=== PATIENT | male | born 1945 | race Caucasian/White ===

== ENCOUNTER 2019-10-03 15:49 | Inpatient (IN) | payer MEDICARE ==
--- NOTE | 2019-10-03 16:54 | RAD ---
EXAM: CHEST ONE VIEW: 10/03/19 HISTORY: Preoperative evaluation. COMPARISON: 07/17/17. FINDINGS: Cardiomegaly. Less than optimal inspiratory effort. No confluent pneumonia, overt edema, or pleural e ffusion. IMPRESSION: Poor inspiratory effort. Minimal cardiomegaly. Atherosclerosis of the aorta. No significant acute int rathoracic disease. POS: RRE
[2019-10-03] MEDS ORDERED: CEFAZOLIN 2 GM in Premix Bag 1 BAG IVPB SCH (17:00)
[2019-10-03 17:12] LABS: #Eosinphils 0.1 thou/uL (0.0-0.7); #Lymphocytes 0.9 thou/uL (1.20-3.40); #Monocytes 0.4 thou/uL (0.11-0.59); #Neutrophils 6.1 thou/uL (1.40-6.50); %Basophils 0.1 % (0.0-1.0); %Eosinophils 0.8 % (0.0-10.0); %Lymphocytes 12.3 % (21.0-51.0); %Monocytes 5.9 % (0.0-10.0); %Neutrophils 80.8 % (42.0-75.0); Hemoglobin 12.8 g/dL (14.0-18.0); Mean Corpuscular Hemoglobin 37.3 pg (27.0-31.0); Mean Platelet Volume 7.8 fL (7.4-10.4); Platelet Count 124 thou/uL (130-400); Red Blood Cell (RBC) Count 3.43 mill/uL (4.70-6.10); White Blood Cell (WBC) Count 7.5 thou/uL (4.8-10.8)
[2019-10-03 17:19] LABS: INR-International Normal Ratio 1.1; Prothrombin Time 14.4 SEC (12.0-14.7)
[2019-10-03] MEDS ORDERED: Dextrose 5% in Water 1,000 ML IV PRN (17:27)
[2019-10-03] MEDS ORDERED: Morphine 2 MG/ML SYRINGE SLOW IVP PRN (17:27)
[2019-10-03] MEDS ORDERED: hydrALAZINE 20 MG/ML VIAL SLOW IVP PRN (17:27)
[2019-10-03] MEDS ORDERED: Ondansetron PF 4 MG/2 ML Vial IVP PRN (17:27)
[2019-10-03] MEDS ORDERED: Dextrose 50% Abboject 50 ML SYRINGE SLOW IVP PRN (17:27)
[2019-10-03] MEDS ORDERED: Cyclobenzaprine 10 MG TAB PO PRN (17:30)
[2019-10-03] MEDS ORDERED: traMADol HCl 50 MG TAB PO PRN ×2 (17:30)
[2019-10-03 17:34] LABS: MDiff Complete? YES; Macrocytosis SLIGHT = 6-15 cells (100X) (0-5/hpf); Platelet Morphology Comment Appears Decreased; Polychromasia SLIGHT = 2-3 cells (100X) (0-2/hpf)
[2019-10-03 17:36] LABS: ALT (SGPT) 17 U/L (8-55); AST (SGOT) 15 U/L (5-34); Alkaline Phosphatase 65 U/L (40-110); Anion Gap 11 mmol/L (10-20); BUN (Urea Nitrogen) 23 mg/dL (8.4-25.7); Bilirubin, Total 0.7 mg/dL (0.2-1.2); Calc. Creatinine Clearance 0 mL/min (70-130); Calcium 8.5 mg/dL (7.8-10.44); Carbon Dioxide 25 mmol/L (23-31); Chloride 109 mmol/L (98-107); Estimated GFR-MDRD 80; Globulin 3.1 g/dL (2.4-3.5); Glucose 100 mg/dL (83-110); Magnesium 1.9 mg/dL (1.6-2.6); Phosphorus 3.6 mg/dL (2.3-4.7); Potassium 4.1 mmol/L (3.5-5.1); Protein, Total 7.1 g/dL (5.8-8.1); Sodium 141 mmol/L (136-145)
[2019-10-03] MEDS ORDERED: Metoprolol Tartrate 5 MG/5 ML VIAL IVP ONE (18:11)
--- NOTE | 2019-10-03 18:42 | HP ---
TRAUMA SURGEON: Dr. Fish. CONSULTING PHYSICIAN: Dr. Green. HISTORY OF PRESENT ILLNESS: The patient is a 73-year-old man presented from the outside hospital with a right tibial shaft fracture. The patient reports earlier today he was being chased by a bull, subsequently climbed a fence and jumped over and when he landed he felt sharp pain in his right tib-fib. He was not able to ambulate after and arrived to an outside hospital via EMS. He was later transferred here for orthopedic consultation. Upon evaluation, the patient's right lower extremity was splinted. He reported pain was well controlled and denied numbness and tingling in his upper and lower extremities. GCS was 15. REVIEW OF SYSTEMS: All additional 10-point review of systems negative except as indicated above. PAST MEDICAL HISTORY: Hypertension, bulging disk. The patient has had 3 cardiac stents placed about [address] Peralta. The patient also has an abdominal aortic stent placed by Dr. Marino about a year and a half ago. PAST SURGICAL HISTORY: Cardiac stents, abdominal aortic stent, and appendectomy. SOCIAL HISTORY: The patient lives at home alone. He does have a fiancee who can help to take care of him. He has a one story house. He does not use anything to get around. He denies tobacco, drug, or alcohol use. MEDICATIONS: 1. Aspirin 81 mg daily. 2. Carvedilol 6.25 mg b.i.d. 3. Atorvastatin 40 mg daily. 4. Amlodipine, unknown dose daily. 5. Furosemide 20 mg daily. 6. Ferrous gluconate daily. ALLERGIES: NO KNOWN DRUG ALLERGIES. PHYSICAL EXAMINATION: VITAL SIGNS: Temperature 97.7, pulse 53, respirations 14, oxygen saturation 97 % on room air, blood pressure 146/67. PRIMARY SURVEY: Airway intact. Adequate breath sounds bilaterally. 2+ pulses in bilateral radials, femorals, and DPs. GCS 15. Gross motor and sensation intact. No lacerations, bruising, or external bleeding. SECONDARY SURVEY: HEAD: Normocephalic and atraumatic. No gross palpable skull deformities or tenderness. EYES: Pupils 3-2, equal, round, reactive to light bilaterally. ENT: No hemotympanum. No epistaxis. No septal hematoma. Midface stable to manipulation. No blood in the oropharynx. Dentition is intact. No anterior neck injury/crepitus/tenderness. C-SPINE: No step-offs or deformities. Nontender. C-collar not in place. CHEST: Nontender. No crepitus. No abrasions or ecchymosis. Equal chest movement. ABDOMEN: Soft, nontender, nondistended. PELVIS: Stable to palpation. Nontender. No abrasions or ecchymosis. RECTAL: Deferred. GENITOURINARY: Deferred. EXTREMITIES: Right lower extremity with splint that is clean, dry, and in place. There is a small abrasion to the posterior aspect of the left hand. 2+ pulses in bilateral radials, femorals, and DPs. BACK/SPINE: No step-offs or deformities. No tenderness to palpation of the thoracic or lumbar spine. No abrasions or ecchymosis noted. NEUROLOGIC: 5/5 strength in bilateral service writer, plantar flexion, and dorsiflexion. Gross normal sensation x4 extremities. LABORATORY FINDINGS: White count 7.5, hemoglobin 12.8, hematocrit 36.6, platelets 124. INR 1.1. Sodium 141, potassium 4.1, chloride 109, bicarb 25, BUN 23, creatinine 0.94, glucose 100, phosphorus 3.6, magnesium 1.9. DIAGNOSTIC FINDINGS: X-ray of the right tib-fib demonstrates oblique displaced fracture of the proximal tibial shaft, possible fracture of the fibular head. Chest x-ray demonstrates poor inspiratory effort, minimal cardiomegaly, atherosclerosis of the aorta. No significant acute intrathoracic process. ASSESSMENT: 1. Status post mechanical fall from fence. 2. Right tibial fracture. 3. History of hypertension, cardiac stents, abdominal aortic stent, bulging disks. PLAN: The patient will be admitted to the Trauma Service and go to the surgical nursing floor. Dr. Green has evaluated the patient and plans to take him to the OR tomorrow. He will have a regular diet now and be n.p.o. at midnight with normal saline at 100 an hour for a total of 1 L. We will repeat blood work in the morning. He will have both scheduled and p.r.n. pain medications. The patient does have a history of gastric ulcer due to NSAID, so we will hold NSAIDs for him. Postoperatively, the patient will be evaluated by PT and OT and may need placement in acute rehab facility. We will complete an EKG as the patient is slightly bradycardic and he does have a cardiac history. We will follow that up. The patient will be discussed with Dr. Fish after this dictation. Job ID: [id number] MTDD
[2019-10-03] MEDS: Gabapentin 100 MG CAP PO SCH (20:17)
[2019-10-03] MEDS: Senokot S 8.6-50 MG TAB PO SCH (20:17)
[2019-10-03] MEDS: Famotidine/PF 20 mg/2ml Vial SLOW IVP SCH (20:18)
[2019-10-03 21:20] VITALS: BMI 31.9
[2019-10-03] MEDS: Acetaminophen 500 MG TAB PO SCH (23:25)
[2019-10-04] MEDS ORDERED: Sodium Chloride 0.9% 1,000 ML IV SCH (00:01)
[2019-10-04 05:52] LABS: #Eosinphils 0.2 thou/uL (0.0-0.7); #Lymphocytes 1.1 thou/uL (1.20-3.40); #Monocytes 0.6 thou/uL (0.11-0.59); #Neutrophils 3.6 thou/uL (1.40-6.50); %Basophils 0.2 % (0.0-1.0); %Eosinophils 3.3 % (0.0-10.0); %Lymphocytes 20.8 % (21.0-51.0); %Monocytes 10.3 % (0.0-10.0); %Neutrophils 65.3 % (42.0-75.0); Hemoglobin 11.5 g/dL (14.0-18.0); Mean Corpuscular HGB CONC 35.2 g/dL (32.0-36.0); Mean Corpuscular Hemoglobin 37.9 pg (27.0-31.0); Mean Platelet Volume 7.5 fL (7.4-10.4); Platelet Count 111 thou/uL (130-400); RBC Distribution Width 12.1 % (11.5-14.5); Red Blood Cell (RBC) Count 3.03 mill/uL (4.70-6.10); White Blood Cell (WBC) Count 5.5 thou/uL (4.8-10.8)
[2019-10-04] MEDS: Acetaminophen 500 MG TAB PO SCH ×3 (05:52→18:16)
[2019-10-04] MEDS: Carvedilol 6.25 MG TAB PO SCH ×3 (05:52→21:40)
[2019-10-04 06:08] LABS: Anion Gap 14 mmol/L (10-20); BUN (Urea Nitrogen) 21 mg/dL (8.4-25.7); Calc. Creatinine Clearance 108 mL/min (70-130); Carbon Dioxide 19 mmol/L (23-31); Chloride 110 mmol/L (98-107); Estimated GFR-MDRD Greater than 90; Glucose 85 mg/dL (83-110); Magnesium 1.9 mg/dL (1.6-2.6); Phosphorus 3.2 mg/dL (2.3-4.7); Potassium 3.6 mmol/L (3.5-5.1); Sodium 139 mmol/L (136-145)
[2019-10-04] MEDS ORDERED: Fentanyl 100 MCG/2 ML VIAL ONE ×2 (06:27)
[2019-10-04] MEDS ORDERED: Lidocaine 2% Jelly 5 ML TUBE ONE (06:27)
--- NOTE | 2019-10-04 06:33 | CON ---
DATE OF CONSULTATION: HISTORY OF PRESENT ILLNESS: We were asked to see the patient by the ER, he came from [facility]. He sustained a right tib-fib fracture when he had a tussle with one of his bulls. He was climbing over a 6 foot fence, the bull helped him get the rest of the way over and upon hitting the ground, he knew he had broke his leg. No head injuries. No other injuries or complaints currently. Last breakfast was this morning. He has been splinted by [facility]. Denies any numbness or tingling in the legs. Able to wiggle his toes okay. Pain has definitely improved with being in a splint. PAST MEDICAL HISTORY: Positive for cholesterol, cardiac disease, hypertension, and some other arthritic pains and back pain. 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 No alcohol or nicotine products greater than 40 years. No drugs whatsoever. CURRENT MEDICATIONS: 1. Atorvastatin. 2. Amlodipine. 3. Carvedilol. 4. Furosemide. 5. Ferrous gluconate. ALLERGIES: NO KNOWN DRUG ALLERGIES. SURGICAL HISTORY: He has had three cardiac stents about five years ago. He has had an aortic stent about a year ago and his doctors for these are Dr. Dominic Peralta and Dr. Harshal Marino. He also sees Dr. Hagan for his spine pain, arthritic pain, and Dr. Aquino for his orthopedic needs. FAMILY HISTORY: For this incident is noncontributory. REVIEW OF SYSTEMS: Denies any shortness of breath, chest pain, bowel, or bladder issues. No other positive review of systems other than right lower extremity pain. PHYSICAL EXAMINATION: GENERAL: Well-nourished, well-developed male. Speech clear. Affect pleasant. Answers questions appropriately. Oriented x3. HEENT: Face symmetric. Tongue midline. Hearing intact. NECK: Supple. Trachea midline. EXTREMITIES: Upper extremities are equal size, shape, symmetry. Normal bulk and tone. Lower extremity; does have a long leg splint on the right lower extremity, but he is able to wiggle the toes. He has no pain in the calf with dorsiflexing toes, so no signs of compartment syndrome. Sensations are intact and capillary refill on the right is quick. Left lower extremity, normal exam. HEART: He does have a subtle murmur. He has been told this before. LUNGS: Clear to auscultation in all lobes. ABDOMEN: Soft, nontender. PELVIS: No pain with rocking. ASSESSMENT: Proximal left tib-fib fracture. PLAN: Trauma is going to admit the patient, do a medical workup. Our plan is to do patient at 7:30 in the morning if he is medically cleared and we will plan to do an ORIF of the right tib-fib. Procedures have been explained to the patient. Dr. Green has gone over the x-rays with the patient. He is going to talk to Dr. Thomas in the morning and they will come up with a surgical fix whether it be a alexx intramedullary placement or plating. The patient understands this. His questions and concerns have been discussed and answered. We will keep him n.p.o. after midnight, get him on the surgery schedule. Ancef has been ordered. Again, Trauma is currently seeing the patient. We will keep him n.p.o. after midnight. Consent has been filled out. The patient is amenable to go forth with surgery. Job ID: [id number]
[2019-10-04] MEDS ORDERED: Magnesium Sulfate 2 GM in Sodium Chloride 0.9% 100 ML IVPB SCH (07:30)
[2019-10-04] MEDS ORDERED: Potassium Phosphate 30 MMOL, Magnesium Sulfate 2 GM in Sodium Chloride 0.9% 250 ML 250 ML IVPB SCH (07:30)
[2019-10-04] MEDS ORDERED: Bupivacaine PF 0.5% 30 ML VIAL ONE (09:08)
[2019-10-04] MEDS ORDERED: Ketorolac Tromethamine 30 MG/ML VIAL IVP PRN (09:36)
[2019-10-04] MEDS ORDERED: Ondansetron HCl/PF 4 MG/2 ML Vial IVP PRN (09:36)
[2019-10-04] MEDS ORDERED: Dexamethasone 20 MG/5 ML VIAL ONE (09:43)
[2019-10-04] MEDS ORDERED: Ketorolac Tromethamine 30 MG/ML VIAL ONE (09:43)
[2019-10-04] MEDS ORDERED: Succinylcholine Chloride 20 MG/ML 10 ml SYRINGE FS ONE (09:43)
[2019-10-04] MEDS ORDERED: EPHEDRINE 25 MG/5 ML SYRINGE ONE (09:43)
[2019-10-04] MEDS ORDERED: Ondansetron PF 4 MG/2 ML Vial ONE (09:43)
[2019-10-04] MEDS ORDERED: Lidocaine 1% PF 5 ML VIAL ONE (09:43)
[2019-10-04] MEDS ORDERED: Rocuronium Bromide 10 MG/ML (10ML VIAL) ONE (09:43)
[2019-10-04] MEDS ORDERED: Glycopyrrolate 0.2 MG/ML 5 ML SYRINGE ONE (09:43)
[2019-10-04] MEDS ORDERED: PROPOFOL 200 MG/20 ML VIAL ONE (09:43)
--- NOTE | 2019-10-04 09:51 | OP ---
DATE OF PROCEDURE: 10/04/2019 OPERATION: Right tibia intramedullary nail. PREOPERATIVE DIAGNOSIS: Right proximal tibia fracture. POSTOPERATIVE DIAGNOSIS: Right proximal tibia fracture. COMPLICATIONS: None. ESTIMATED BLOOD LOSS: Minimal. CO-SURGEON: Rasheed Green MD IMPLANTS: Synthes 360 mm x 11 mm tibial nail, multiple Crosslock screws. INDICATIONS: Mr. Cardoso is a 73-year-old male who has been injured by a bull. He fractured his right tibia and fibula. He was indicated for intramedullary nail to restore anatomic alignment and promote healing. Risks have been reviewed in detail. He elected to proceed with the operation. DESCRIPTION OF PROCEDURE: We began the procedure by making a small incision proximal to the patella. We dissected down to the quadriceps tendon and incised the tendon. At this point, we used finger dissection to work our way down under the patella. We made a small incision in the capsule. This allowed us to introduce our protection sleeve under the patella down to the tibia for our start point. We guided this with intraoperative x-ray. Once we had an appropriate start point, we inserted our guidewire. We then over-reamed the guidewire using the appropriate guides. We checked x-rays for this. At this point, we placed our ball-tipped guidewire across the fracture site. The fracture was held in reduction. We applied a reduction clamp to the fracture as well. Next, we seated the guidewire distally taking x-rays. We measured an appropriate length for nail. We then proceeded to ream for nail. We reamed up to a size 12 reamer from 8.5. We impacted an 11-mm tibial nail. We placed 3 screws proximally using the appropriate guides. We placed a single distal Crosslock screw. Final x-ray images were taken. We thoroughly irrigated with copious lavage. We then closed appropriately in layers. Wounds were closed and a sterile dressing was placed. The patient was taken to the recovery room in good condition. Job ID: [id number]
--- NOTE | 2019-10-04 10:22 | RAD ---
RIGHT LEG 2 VIEWS: HISTORY: Fracture of the proximal right tibial shaft. FINDINGS/IMPRESSION: Six spot fluoroscopic intraoperative images of the right tibia demonstrate interval reduction and int ernal fixation of the fracture of the proximal tibia with intramedullary rods and interlocking screws , since the previous day's exam. POS: MIKEY
[2019-10-04] MEDS: Famotidine/PF 20 mg/2ml Vial SLOW IVP SCH (10:50)
[2019-10-04] MEDS: Amlodipine 5 MG TAB PO SCH (10:51)
[2019-10-04] MEDS: Gabapentin 100 MG CAP PO SCH ×3 (10:51→20:53)
[2019-10-04] MEDS: Senokot S 8.6-50 MG TAB PO SCH ×2 (10:51→20:54)
[2019-10-04] MEDS: Atorvastatin Calcium 40 MG TAB PO SCH (10:51)
[2019-10-04] MEDS: Polyethylene Glycol 3350 17 GM Packet PO SCH (10:53)
[2019-10-04] MEDS: Ferrous Gluconate 324 MG TAB PO SCH (11:27)
[2019-10-04] MEDS: CEFAZOLIN 2 GM in Premix Bag 1 BAG IVPB SCH ×2 (13:46→20:53)
--- NOTE | 2019-10-04 15:33 | PRG ---
DATE OF SERVICE: 10/04/2019 SUBJECTIVE: This is a 73-year-old gentleman who presented to the emergency room with a right tibial shaft fracture after he fell from a fence. The patient has just returned from the operating room after right tibial intramedullary nail for his right proximal tibia fracture with Dr. Thomas. The patient is awake, alert, in no distress. The patient reports that his pain is well controlled at this time. The patient is tolerating clear liquids at this time. The patient voices no complaints or concerns. OBJECTIVE: VITAL SIGNS: Blood pressure 143/84, pulse 82, respirations 18, temperature 97.7. GENERAL: Elderly gentleman, well appearing, awake, alert, in no distress. HEENT: Head is normocephalic and atraumatic. RESPIRATORY: Equal chest rise and fall, bilateral breath sounds clear. EXTREMITIES: Moves all extremities, no gross deformity. Right lower extremity with splint, clean, dry, and intact. NEUROLOGIC: No focal deficits, GCS 15. LABORATORY DATA: WBC 5.5, RBC 3.03, hemoglobin 11.5, hematocrit 32.5, platelets 111. Sodium 139, potassium 3.6, chloride 110, BUN 21, creatinine 0.81, estimated GFR greater than 90, glucose 85, calcium 8.0, phosphorus 3.2, magnesium 1.9. DIAGNOSTICS: There are no new diagnostics to review. ASSESSMENT: 1. Status post mechanical fall from fence. 2. Right proximal tibial fracture, status post repair with intramedullary nail. 3. History of hypertension, cardiac stents, abdominal aortic stent, and bulging disk. 4. Gastric ulcer secondary to NSAIDs. PLAN: Continue supportive care. Continue pain regimen. Heart healthy diet as tolerated. We will stop the patient's IV fluids. We will have Physical Therapy work with the patient today. We will continue to hold any NSAIDs due to patient's gastric ulcer history. A rehab screen has been placed. We will replace electrolytes. We will repeat labs in the morning. If hemoglobin and hematocrit are stable, we will start the patient on VTE prophylaxis. The plan was discussed with the attending who agrees. Job ID: [id number]
[2019-10-04] MEDS ORDERED: Cepastat Lozenges 1 LOZ PO PRN (21:19)
--- NOTE | 2019-10-04 22:16 | PRG ---
DATE OF SERVICE: 10/04/2019 SUBJECTIVE: The patient was seen this evening, sitting up in bed with no signs of acute distress. He reported his pain is well controlled and he is tolerating his diet. He worked with Physical and Occupational Therapy already today. He is postoperative day 0 after IM nail in right proximal tibia. OBJECTIVE: VITAL SIGNS: Temperature 98, pulse 70, respirations 16, oxygen saturation 92% on room air, and blood pressure 113/67. GENERAL: Well-appearing elderly male, sitting up in bed with no signs of acute distress. PULMONARY: Equal chest rise and fall. No signs of acute respiratory distress. ASSESSMENT: 1. Status post fall from fence. 2. Right tibial fracture. 3. History of hypertension, cardiac stents x3., abdominal aortic stent, hypertension, bulging discs, and gastric ulcer secondary to NSAIDs. PLAN: Continue current diet and pain regimen. Continue physical and occupational therapy. We will consider starting chemo DVT prophylaxis tomorrow. The patient is still not on his home Lasix. We will also consider restarting that tomorrow after repeat blood work in the morning. Job ID: [id number]
[2019-10-05] MEDS: Acetaminophen 500 MG TAB PO SCH ×4 (00:32→18:05)
[2019-10-05] MEDS: CEFAZOLIN 2 GM in Premix Bag 1 BAG IVPB SCH (05:20)
[2019-10-05 06:00] LABS: #Eosinphils 0.1 thou/uL (0.0-0.7); #Monocytes 0.7 thou/uL (0.11-0.59); #Neutrophils 5.7 thou/uL (1.40-6.50); %Basophils 0.2 % (0.0-1.0); %Lymphocytes 13.1 % (21.0-51.0); %Monocytes 9.5 % (0.0-10.0); %Neutrophils 76.2 % (42.0-75.0); Mean Corpuscular HGB CONC 35.6 g/dL (32.0-36.0); Mean Corpuscular Hemoglobin 38.3 pg (27.0-31.0); Mean Platelet Volume 7.3 fL (7.4-10.4); Platelet Count 111 thou/uL (130-400); RBC Distribution Width 12.1 % (11.5-14.5); Red Blood Cell (RBC) Count 2.62 mill/uL (4.70-6.10); White Blood Cell (WBC) Count 7.5 thou/uL (4.8-10.8)
[2019-10-05 06:19] LABS: Anion Gap 13 mmol/L (10-20); BUN (Urea Nitrogen) 18 mg/dL (8.4-25.7); Calc. Creatinine Clearance 93 mL/min (70-130); Carbon Dioxide 21 mmol/L (23-31); Chloride 107 mmol/L (98-107); Estimated GFR-MDRD 78; Glucose 112 mg/dL (83-110); Phosphorus 2.6 mg/dL (2.3-4.7); Potassium 3.7 mmol/L (3.5-5.1); Sodium 137 mmol/L (136-145)
[2019-10-05] MEDS: Ferrous Gluconate 324 MG TAB PO SCH (08:14)
[2019-10-05] MEDS: Carvedilol 6.25 MG TAB PO SCH (08:14)
[2019-10-05] MEDS: Polyethylene Glycol 3350 17 GM Packet PO SCH (08:15)
[2019-10-05] MEDS: Senokot S 8.6-50 MG TAB PO SCH (08:15)
[2019-10-05] MEDS: Atorvastatin Calcium 40 MG TAB PO SCH (08:15)
[2019-10-05] MEDS: Amlodipine 5 MG TAB PO SCH (08:15)
[2019-10-05] MEDS: Gabapentin 100 MG CAP PO SCH ×2 (08:15→15:41)
[2019-10-05] MEDS ORDERED: Enoxaparin Sodium 30 MG/0.3 ML SYRINGE SC SCH (09:00)
[2019-10-05 16:48] VITALS: BP 134/72; TEMP 98.2
[2019-10-06] MEDS ORDERED: Furosemide 20 MG TAB PO SCH (09:00)
--- NOTE | 2019-10-06 11:52 | DIS ---
DATE OF ADMISSION: 10/03/2019 DATE OF DISCHARGE: 10/05/2019 CONSULTS: Orthopedic Surgery, Dr. Green. PROCEDURES: On 10/04/2019, intramedullary nail, right proximal tibia fracture by Dr. Green. PRIMARY DIAGNOSES: Status post mechanical fall from fence, right proximal tibial fracture. SECONDARY DIAGNOSES: History of hypertension, cardiac stents, abdominal aortic stent, bulging disk. DISCHARGE MEDICATIONS: 1. Acetaminophen 1000 mg q.6 hours. 2. Norvasc 5 mg p.o. daily. 3. Lipitor 40 mg daily. 4. Carvedilol 6.25 mg p.o. b.i.d. 5. Cepastat lozenge p.r.n. 6. Flexeril 5 mg p.o. three times a day p.r.n. muscle spasms. 7. Lovenox 30 mg subcu b.i.d. 8. Ferrous sulfate 324 mg p.o. daily with meals. 9. Furosemide 20 mg p.o. q.a.m. 10. Gabapentin 100 mg p.o. three times a day. 11. MiraLAX as needed. 12. Senokot-S as needed. 13. Tramadol 1 to 2 tablets q.6 hours p.r.n. pain. No discontinued medications. HISTORY OF PRESENT ILLNESS AND HOSPITAL COURSE: This is a 73-year-old man, who presented to the ER at an outside hospital with a right tibial shaft fracture. The patient was being chased by a bull and went to climb the fence. When he jumped over the fence, he landed and felt a sharp pain into his right tib-fib. The patient was not able to ambulate and was brought into the ER by EMS. The patient's pain was well controlled pre and postop. The patient had no other injuries or no loss of consciousness. The patient's GCS is 15. The patient's vital signs were stable during his hospital stay. The patient was able to participate with physical therapy, but felt like he needed additional physical therapy for a few days before going home and feeling safe. On the day of discharge, the patient was evaluated and his exam was unremarkable including cardiopulmonary and GI exam. The patient's vital signs were stable and pain was well controlled. The patient was deemed stable for discharge to inpatient rehab for continued physical and occupational therapy. DISPOSITION: Stable. DISCHARGE INSTRUCTIONS: 1. Location: Inpatient rehab. 2. Diet: Heart healthy diet as tolerated. 3. Activity: Orthopedic limitations, toe touch weightbearing in right lower extremity, the patient is to use a walker to ambulate. 4. Followup: Follow up with Orthopedic Surgery in 14 days. Job ID: [id number]
== END 2019-10-05 18:23 | DRG 494 ==
LOC: ERS 15:49 → SURG A 17:27
PROVIDERS: ADMIT Specialist; ATTEND Specialist
PROC: 0QSG04Z Reposition Right Tibia with Internal Fixation Device, Open Approach (ICD-10-PCS; principal; 2019-10-04)
DX: S82.231A Displaced oblique fracture of shaft of right tibia, initial encounter for closed fracture (principal); I10 Essential (primary) hypertension; K25.9 Gastric ulcer, unspecified as acute or chronic, without hemorrhage or perforation; T39.395A Adverse effect of other nonsteroidal anti-inflammatory drugs [NSAID], initial encounter; W13.8XXA Fall from, out of or through other building or structure, initial encounter; Y92.79 Other farm location as the place of occurrence of the external cause; Z95.5 Presence of coronary angioplasty implant and graft; Z95.828 Presence of other vascular implants and grafts; Z79.899 Other long term (current) drug therapy
CPT/HCPCS: 36415; 71045; 76000; 80048; 80053; 83735; 84100; 85025; 85610; 86850; 86900; 86901; C1713; C1769; G0390; J0690; J1100; J1650; J1885; J2001; J2405; J2704; J3010; S0020; S0028